=== PATIENT | male | born 1950 | race Caucasian/White ===

== ENCOUNTER → 2017-08-20 | Outpatient (CLI) | payer OTHER, MEDICARE | LOC: BHFA 11:00 | PROVIDERS: ATTEND Internal Medicine Cardiovascular Disease | DX: R53.83 Other fatigue (principal); R68.89 Other general symptoms and signs ==

== ENCOUNTER → 2017-10-15 | Outpatient (CLI) | payer OTHER, MEDICARE | LOC: BMCIMAGING 10:37 | PROVIDERS: ATTEND Podiatrist Foot & Ankle Surgery | DX: M19.071 Primary osteoarthritis, right ankle and foot (principal) ==